=== PATIENT | male | born 1985 | race Caucasian/White ===

== ENCOUNTER 2020-05-09 12:54 | Emergency (ER) | payer BC ==
--- NOTE | 2020-05-09 13:20 | EDM.PDOC ---
ED HPI GENERAL MEDICAL PROBLEM - General Chief Complaint: Headache Stated Complaint: [id number] MIGRAINE/TENSION HEADACHE LEFT ARM WEAK Time Seen by Provider: 05/09/20 13:20 Source of Information: Reports: Patient, RN History Limitations: Reports: No Limitations - History of Present Illness INITIAL COMMENTS - FREE TEXT/NARRATIVE: 34-year-old male who presents to the ER with complaints of headaches in the last 1 week. Patient reports he will have headaches on top of his head with corresponding left arm weakness and confusion. He states headache started 1 week ago and he took off the week from work to try to rest. He has been pushing fluids and resting. Headaches have been occurring daily without any triggers. He denies any stressful events in his life at this time. He has not taken any medications for his headaches. He denies any slurred speech. He denies any headaches at this time. - Related Data Allergies Allergy/AdvReac Type Severity Reaction Status Date / Time nickel Allergy breaks out Verified 05/09/20 13:24 Environmental/Seasonal Allergy sinus Uncoded 05/09/20 13:14 Allergies congestion/runny nose Home Meds: Home Meds Losartan Potassium 50 mg PO DAILY 05/09/20 [History] Past Medical History - Past Surgical History Musculoskeletal Surgical History: Reports: Other (See Below) Social & Family History - Family History Family Medical History: Noncontributory ED ROS GENERAL - Review of Systems Review Of Systems: Comprehensive ROS is negative, except as noted in HPI. ED EXAM, GENERAL - Physical Exam Exam: See Below Exam Limited By: No Limitations General Appearance: Alert, WD/WN, No Apparent Distress Ears: Normal External Exam, Normal Canal, Hearing Grossly Normal, Normal TMs Nose: Normal Inspection, Normal Mucosa, No Blood Throat/Mouth: Normal Inspection, Normal Lips, Normal Teeth, Normal Gums, Normal Oropharynx, Normal Voice, No Airway Compromise Head: Atraumatic, Normocephalic Neck: Normal Inspection, Supple, Non-Tender, Full Range of Motion Respiratory/Chest: No Respiratory Distress, Lungs Clear, Normal Breath Sounds, No Accessory Muscle Use, Chest Non-Tender Cardiovascular: Normal Peripheral Pulses, Regular Rate, Rhythm, No Edema, No Gallop, No JVD, No Murmur, No Rub GI/Abdominal: Normal Bowel Sounds, Soft, Non-Tender, No Organomegaly, No Distention, No Abnormal Bruit, No Mass (Male) Exam: Deferred Rectal (Males) Exam: Deferred Back Exam: Normal Inspection Extremities: Normal Inspection, Non-Tender, Normal Capillary Refill Neurological: Alert, Oriented, CN II-XII Intact, Normal Cognition, Normal Gait, No Motor/Sensory Deficits Psychiatric: Normal Affect, Normal Mood Skin Exam: Warm Course - Vital Signs Last Recorded V/S: Last Vital Signs Temp 98.8 F 05/09/20 12:59 Pulse 100 05/09/20 12:59 Resp 16 05/09/20 12:59 BP 157/83 H 05/09/20 14:55 Pulse Ox 97 05/09/20 12:59 - Orders/Labs/Meds Labs: Laboratory Tests 05/09/20 05/09/20 Range/Units 14:15 14:15 WBC 10.7 H (5.0-10.0) 10^3/uL RBC 5.87 (4.6-6.2) 10^6/uL Hgb 16.0 (14.0-18.0) g/dL Hct 47.2 (40.0-54.0) % MCV 80.4 (80-100) fL MCH 27.3 (27.0-34.0) pg MCHC 33.9 (33.0-35.0) g/dL Plt Count 280 (150-450) 10^3/uL Neut % (Auto) 74.4 (42.2-75.2) % Lymph % (Auto) 18.4 L (20.5-50.1) % Mason % (Auto) 6.1 (2-8) % Eos % (Auto) 0.7 L (1.0-3.0) % Baso % (Auto) 0.4 (0.0-1.0) % Sodium 140 (136-145) mmol/L Potassium 4.6 (3.5-5.1) mmol/L Chloride 101 (98-107) mmol/L Carbon Dioxide 32 (21-32) mmol/L Anion Gap 11.6 (7-13) mEq/L BUN 17 (7-18) mg/dL Creatinine 1.39 H (0.70-1.30) mg/dL Est Cr Clr Drug Dosing 95.89 mL/min Estimated GFR (MDRD) 58 BUN/Creatinine Ratio 12.2 (No establ ref range) Glucose 136 H (74-99) mg/dL Calcium 8.9 (8.5-10.1) mg/dL Total Bilirubin 0.4 (0.2-1.0) mg/dL AST 19 (15-37) U/L ALT 44 (16-63) U/L Alkaline Phosphatase 124 H (46-116) U/L Total Protein 8.0 (6.4-8.2) g/dL Albumin 4.2 (3.4-5.0) g/dL Globulin 3.8 Albumin/Globulin Ratio 1.1 - Re-Assessments/Exams Free Text/Narrative Re-Assessment/Exam: reviewed exam findings, lab and CT head with patient. BP was elevated, double his Losartan 50 mg. Encouraged pushing fluids. Follow up with PCP Departure - Departure Time of Disposition: 14:57 Disposition: Home, Self-Care 01 Condition: Good Clinical Impression: Tension-type headache, Dehydration HTN (hypertension) Qualifiers: Hypertension type: essential hypertension Qualified Code(s): I10 - Essential (primary) hypertension - Discharge Information Instructions: Tension Headache, Adult, [id number], Dehydration, Adult, [id number], Hypertension, Adult, [id number] Forms: ED Department Discharge Additional Instructions: Increased Losartan 50 mg to 100 mg Follow up with you doctor on Monday Push fluids and rest Sepsis Event Note (ED) - Focused Exam Vital Signs: Vital Signs Temp Pulse Resp BP Pulse Ox 05/09/20 14:55 157/83 H 05/09/20 12:59 98.8 F 100 16 154/89 H 97
[2020-05-09 13:22] VITALS: PULSE 100
--- NOTE | 2020-05-09 14:18 | CT ---
PROCEDURE INFORMATION: Exam: CT Head Without Contrast Exam date and time: 05/09/2020 2:01 PM Age: 34 years old Clinical indication: Other: Intermittant pain RT side head/eye, lt arm weakness; Additional info: Intermit pain RT side head/eye, lt. Arm weakness TECHNIQUE: Imaging protocol: Computed tomography of the head without contrast. Radiation optimization: All CT scans at this facility use at least one of these dose optimization techniques: automated exposure control; mA and/or kV adjustment per patient size (includes targeted exams where dose is matched to clinical indication); or iterative reconstruction. COMPARISON: No relevant prior studies available. FINDINGS: Brain: Normal. No hemorrhage. Unremarkable white matter. No mass effect. Ventricles: Normal. No ventriculomegaly. Bones/joints: Unremarkable. No acute fracture. Sinuses: Visualized sinuses are unremarkable. No fluid levels. Mastoid air cells: Visualized mastoid air cells are well aerated. Soft tissues: Unremarkable. IMPRESSION: No acute intracranial abnormality.
[2020-05-09 14:42] LABS: ANION GAP 11.6 mEq/L (7-13)
[2020-05-09 14:56] VITALS: BP 157/83
== END 2020-05-09 15:10 | disposition home or self-care (01) ==
LOC: DL.ED 12:54
DX: G44.209 Tension-type headache, unspecified, not intractable (principal); E86.0 Dehydration; I10 Essential (primary) hypertension; Z91.09 Other allergy status, other than to drugs and biological substances; Z79.899 Other long term (current) drug therapy
CPT/HCPCS: 36415; 70450; 80053; 85025; 99283; 99285-25